=== PATIENT | female | born 1990 | race Caucasian/White ===

== ENCOUNTER 2021-06-17 20:35 | Emergency (ER) | payer OTHER ==
[~2021-06-17] VITALS: Ht 162.6 cm; Wt 75.0 kg
[2021-06-17 22:09] LABS: UA COLLECTION TYPE CLN CATCH MIDSTREAM
[2021-06-17 22:10] LABS: CLARITY,URINE CLOUDY (Clear); COLOR,URINE BROWN (Yellow); GLUCOSE, URINE NEGATIVE (Neg); KETONES,URINE NEGATIVE (Neg); OCCULT BLOOD,URINE LARGE (Neg); PROTEIN,URINE 100 mg/dl (Neg)
[2021-06-17 22:11] LABS: LEUKOCYTE ESTERASE ,URINE TRACE (Neg); NITRITES, URINE NEGATIVE (Neg); UROBILINOGEN,URINE 0.2 E.U/dL (0.2-1.0)
[2021-06-17 22:21] LABS: BACTERIA,URINE FEW /HPF (Neg); MUCUS STRANDS NONE SEEN /LPF (Neg); RBC,URINE TNTC /HPF (0-2); SQUAMOUS EPITHELIAL CELL,UR FEW /LPF (FEW); WBC,URINE 0-4 /HPF (0-4)
[2021-06-18] MEDS ORDERED: cephalexin 250mg capsule PO ONE (02:45)
[2021-06-18] MEDS ORDERED: CEPH-585 PO (02:45)
[2021-06-18 03:02] VITALS: BP 117/70
== END 2021-06-18 03:04 | disposition home or self-care (01) ==
LOC: ER 20:35
DX: N20.1 Calculus of ureter (principal); F17.200 Nicotine dependence, unspecified, uncomplicated; Z79.2 Long term (current) use of antibiotics; Z87.442 Personal history of urinary calculi
CPT/HCPCS: 74176; 76856; 81001; 87088; 93976; 99284